=== PATIENT | female | born 1950 | race Caucasian/White ===

== ENCOUNTER 2021-01-17 08:00 | Outpatient (CLI) | payer MEDICARE ==
--- NOTE | 2021-01-17 15:15 | XRAY Report ---
PROCEDURE: Knee 3 View RT INDICATIONS: RIGHT KNEE PAIN TECHNIQUE: 3 views of the right knee(s) were acquired. COMPARISON: None. FINDINGS: Bones: No fractures or dislocations. No suspicious bony lesions. Mild tricompartmental osteoarthri tis. Soft tissues: Trace suprapatellar joint effusion. No suspicious soft tissue calcifications. IMPRESSION: Mild tricompartmental osteoarthritis. No fracture. No acute osseous lesion. If there persistent symptoms or continued clinical concern for pathology, then repeat plain film radiographs (7-10 days) or advanced imaging (CT, MR, bone scan) immanuel uld be considered for further evaluation. Reviewed by: Patty Harirson MD, PhD on 01/17/2021 3:13 PM PDT Approved by: Patty Harrison MD, PhD on 01/17/2021 3:13 PM PDT Station ID: [id number]
== END 2021-01-17 23:59 | disposition home or self-care (01) ==
LOC: DI.S 08:00
PROVIDERS: ATTEND Physician Assistant Medical
DX: M17.11 Unilateral primary osteoarthritis, right knee (principal)

== ENCOUNTER 2021-01-23 16:40 | Emergency (ER) | payer MEDICARE ==
--- OUTSIDE RECORDS SUMMARY | 2021-01-23 16:43 | EXTERNAL MEDICAL SUMMARY RPT | Continuity of Care Document ---
:1950 Demographics Phone Unavailable Preferred Language Unknown Marital Status Unknown Zoroastrianism Affiliation Unknown Race Unknown Ethnic Group Unknown Author Organization [facility] Address [address] [phone] Phone Care Team Providers Name Role Phone PA-C Unavailable Unavailable PA-C Unavailable Unavailable Problems date description facility 20210123 Unspecified right bundle-branch block [facility] 20210123 Tobacco use and exposure [facility] 20210123 Tobacco smoking status [facility] 20210123 Right bundle branch block [facility] 20210123 Never smoker [facility] 20210123 Exercise [facility] 20210117 Other bursitis of knee, right knee [facility] 20210117 Enthesopathy of knee, unspecified [facility] 20210117 Bursitis of knee [facility] 20210117 XR KNEE 3 VIEW [facility] 20210117 Tobacco use and exposure [facility] 20210117 Tobacco smoking status [facility] 20210117 Pain in right knee [facility] 20210117 Pain in joint involving lower leg [facility] 20210117 Never smoker [facility] 20210117 Knee pain [facility] 20210117 Exercise [facility] date description facility 20210123 EKG Office Complete [facility] [place] 20210117 XR KNEE 3 VIEW [facility] [place] 20210117 XR KNEE 3 VIEW [facility] [place] Vital Signs date measurement value source 20210117 weight_standard 125.6 lb 20210117 weight_metric 56.97 kg 20210117 temperature_standard 99 F 20210117 temperature_metric 37.22 C 20210117 respiration_rate 14 /min 20210117 height_standard 63.5 in 20210117 height_metric 161.29 cm 20210117 heart_rate 108 /min 20210117 BP_systolic 136 mm[Hg] 20210117 BP_diastolic 77 mm[Hg] 20210117 BMI 21.98 kg/m2 20210123 weight_standard 125 lb 20210123 weight_metric 56.7 kg 20210123 temperature_standard 97.2 F 20210123 temperature_metric 36.22 C 20210123 respiration_rate 14 /min 20210123 height_standard 63.5 in 20210123 height_metric 161.29 cm 20210123 heart_rate 86 /min 20210123 BP_systolic 157 mm[Hg] 20210123 BP_diastolic 77 mm[Hg] 20210123 BMI 21.87 kg/m2
--- NOTE | 2021-01-23 16:54 | ED Physician Documentation ---
History of Present Illness - Stated complaint Stated Complaint: RAPID HEARTRATE - Chief complaint Chief Complaint: Cardiac - History obtained from History obtained from: Patient - History of Present Illness Timing: How many weeks ago (1) Pain level max: 1 Pain level now: 0 - Additonal information Additional information: Patient is a 70-year-old female who states that she has been having palpitations intermittently for the past 1 to 2 weeks. She states she is on no medications. She states she had some slight chest pressure 2 weeks ago. None since then. She was seen at the walk-in clinic earlier today and noted to have a right bundle branch block so they sent her here for evaluation. Patient has not been tachycardic at the walk-in clinic. She states her only medical history is 3 C- sections in the past. No recent travel. No leg swelling. Currently asymptomatic No recent surgeries. . No recent antibiotics. Review of Systems Ten Systems: 10 systems reviewed and negative Constitutional: denies: Fever, Chills Nose: denies: Rhinorrhea / runny nose, Congestion Throat: denies: Sore throat Cardiac: reports: Palpitations. denies: Calf pain Respiratory: denies: Dyspnea, Cough, Hemoptysis, Wheezing GI: denies: Vomiting, Diarrhea Skin: denies: Rash Musculoskeletal: denies: Neck pain, Back pain Neurologic: denies: Headache, Head injury PD PAST MEDICAL HISTORY - Past Medical History Past Medical History: No - Present Medications Home Medications: Ambulatory Orders Medication Instructions Recorded Confirmed No Known Home Medications 01/23/21 01/23/21 - Allergies Allergies/Adverse Reactions: Allergies Allergy/AdvReac Type Severity Reaction Status Date / Time No Known Drug Allergies Allergy Verified 01/23/21 16:46 - Living Situation Living Arrangement: reports: At home - Social History Does the pt smoke?: No Does the pt drink ETOH?: No Does the pt have substance abuse?: No PD ED PE NORMAL - Vitals Vital signs reviewed: Yes - General General: Alert and oriented X 3, No acute distress, Well developed/nourished - HEENT HEENT: Moist mucous membranes - Neck Neck: Supple, no meningeal sign, No JVD, No bruit - Cardiac Cardiac: RRR, No murmur, Strong equal pulses - Respiratory Respiratory: No respiratory distress, Clear bilaterally - Abdomen Abdomen: Soft, Non tender, Non distended - Derm Derm: Warm and dry - Extremities Extremities: No edema, No calf tenderness / cord - Neuro Neuro: Alert and oriented X 3, mastic sprayer 2-12 intact, No motor deficit, No sensory deficit, Normal speech - Psych Psych: Normal mood, Normal affect Results - Vitals Vitals: Vital Signs - 24 hr 01/23/21 01/23/21 16:47 18:15 Temperature 36.8 C Heart Rate 99 75 Respiratory 18 17 Rate Blood Pressure 156/84 H 130/90 H O2 Saturation 99 99 Oxygen O2 Source Room air - EKG (time done) 1648 Rate: Rate (enter#) (95) Rhythm: NSR [place]: Normal Intervals: Normal SD, RBBB Ischemia: Normal ST segments Compare to prior EKG: Old EKG unavailable - Labs Labs: Laboratory Tests 01/23/21 01/23/21 01/23/21 17:00 17:00 17:00 WBC 8.9 RBC 4.59 Hgb 13.3 Hct 39.2 MCV 85.4 MCH 29.0 MCHC 33.9 RDW 12.9 Plt Count 267 MPV 8.5 Neut # (Auto) 5.5 Lymph # (Auto) 2.6 [place] # (Auto) 0.5 Eos # (Auto) 0.1 Baso # (Auto) 0.1 Absolute Nucleated RBC 0.00 Nucleated RBC % 0.0 D-Dimer Sodium 133 L Potassium 3.5 Chloride 98 L Carbon Dioxide 24 Anion Gap 11.0 BUN 10 Creatinine 0.6 Estimated GFR (MDRD) 99 Glucose 154 H Calcium 9.4 Total Bilirubin 0.8 AST 21 ALT 23 Alkaline Phosphatase 37 L Troponin I High Sens 3.4 Total Protein 7.0 Albumin 4.5 Globulin 2.5 Albumin/Globulin Ratio 1.8 Lipase 35 01/23/21 17:00 WBC RBC Hgb Hct MCV MCH MCHC RDW Plt Count MPV Neut # (Auto) Lymph # (Auto) [place] # (Auto) Eos # (Auto) Baso # (Auto) Absolute Nucleated RBC Nucleated RBC % D-Dimer < 200.0 L Sodium Potassium Chloride Carbon Dioxide Anion Gap BUN Creatinine Estimated GFR (MDRD) Glucose Calcium Total Bilirubin AST ALT Alkaline Phosphatase Troponin I High Sens Total Protein Albumin Globulin Albumin/Globulin Ratio Lipase - Rads (name of study) cxr Radiology: Prelim report reviewed, EMP read contemporaneously, See rad report (No acute cardiopulmonary pathology. ) PD MEDICAL DECISION MAKING - ED course Complexity details: reviewed results, re-evaluated patient, considered virginiakarthik cerda, d/w patient ED course: 70-year-old female with palpitations intermittently for the past 2 weeks. Does have an occasional PVC on monitoring here. No acute laboratory findings. No acute findings on EKG or chest x-ray. Negative D-dimer. Symptoms not consistent with a PE at this time. Low suspicion. Heart rate down to the 70s to 80s in the emergency department. Recommend that she follow-up with her doctor for further care, possible Holter monitoring. Patient counseled regarding signs and symptoms for which I believe and urgent re-evaluation would be necessary. Patient with good understanding of and agreement to plan and is comfortable going home at this time This document was made in part using voice recognition software. While efforts are made to proofread this document, sound alike and grammatical errors may occur. Departure - Departure Disposition: 01 Home, Self Care Clinical Impression: Palpitations Condition: Good Instructions: ED Palpitations Follow-Up: Renee Rubi MD [Primary Care Provider] - Comments: The cause of your symptoms is unclear today. You need to follow-up with your doctor for further evaluation. Your doctor may want to perform a test called a Holter monitor to monitor you for any arrhythmias. There is no evidence of heart attack, blood clot to the lungs or significant electrolyte issue today. Return if you worsen Discharge Date/Time: 01/23/21 18:15
[2021-01-23 17:06] LABS: BASOPHILS # (AUTO) 0.1 10^3/uL (0.0-0.1); BASOPHILS % (AUTO) 0.8 %; EOSINOPHILS # (AUTO) 0.1 10^3/uL (0.0-0.7); EOSINOPHILS % (AUTO) 1.5 %; HCT - HEMATOCRIT 39.2 % (37.0-47.0); HGB - HEMOGLOBIN 13.3 g/dL (12.0-16.0); LYMPHOCYTES # (AUTO) 2.6 10^3/uL (1.5-3.5); LYMPHOCYTES % (AUTO) 29.4 %; MEAN CORPUSCULAR HGB CONC 33.9 g/dL (32.0-36.0); MEAN CORPUSCULAR VOLUME 85.4 fL (81.0-99.0); MEAN PLATELET VOLUME 8.5 fL (7.9-10.8); MONOCYTES # (AUTO) 0.5 10^3/uL (0.0-1.0); MONOCYTES % (AUTO) 5.7 %; NEUTROPHILS # (AUTO) 5.5 10^3/uL (1.5-6.6); PLT - PLATELET COUNT 267 10^3/uL (130-450); RED BLOOD COUNT 4.59 10^6/uL (4.20-5.40); RED CELL DISTRIBUTION WIDTH 12.9 % (12.0-15.0); WHITE BLOOD COUNT 8.9 x10^3/uL (4.8-10.8)
--- OUTSIDE RECORDS SUMMARY | 2021-01-23 17:13 | EXTERNAL MEDICAL SUMMARY RPT | Continuity of Care Document ---
:1950 Demographics Phone Unavailable Preferred Language Unknown Marital Status Unknown Congregational Affiliation Unknown Race Unknown Ethnic Group Unknown Author Organization [facility] Address [address] [phone] Phone Care Team Providers Name Role Phone [...] facility 20210123 EKG Office Complete [facility] [place] 20210117 XR KNEE 3 VIEW [facility] [place] 20210117 XR KNEE 3 VIEW [facility] [place] Vital Signs date measurement value source 20210117 [...]
[2021-01-23 17:20] LABS: ALBUMIN 4.5 g/dL (3.2-5.5); ALBUMIN/GLOBULIN RATIO 1.8 (1.0-2.2); BILIRUBIN,TOTAL 0.8 mg/dL (0.2-1.0); CALCIUM 9.4 mg/dL (8.5-10.3); CREATININE 0.6 mg/dL (0.4-1.0); POTASSIUM 3.5 mmol/L (3.5-5.0)
--- NOTE | 2021-01-23 17:21 | XRAY Report ---
PROCEDURE: Chest 1 View X-Ray INDICATIONS: Chest Pain TECHNIQUE: One view of the chest was acquired. COMPARISON: None. FINDINGS: Surgical changes and devices: None. Lungs and pleura: No pleural effusions or pneumothorax. Lungs are clear. Mediastinum: Mediastinal contours appear normal. Heart size is normal. Bones and chest wall: No suspicious bony lesions. Overlying soft tissues appear unremarkable. IMPRESSION: No acute cardiopulmonary pathology. Reviewed by: Jose Montano MD on 01/23/2021 5:20 PM PDT Approved by: Jose Montano MD on 01/23/2021 5:20 PM PDT Station ID: [id number]
[2021-01-23 18:18] VITALS: BP 130/90
== END 2021-01-23 18:15 | disposition home or self-care (01) ==
LOC: ED 16:40
DX: R00.2 Palpitations (principal)
CPT/HCPCS: 36415; 80053; 83690; 84484; 85025; 85379; 93005; 99284

== ENCOUNTER 2021-02-08 16:11 | Outpatient (CLI) | payer MEDICARE ==
[2021-02-08 16:46] LABS: CREATININE 0.5 mg/dL (0.4-1.0)
[2021-02-08] MEDS ORDERED: IOVERSOL 320 100 ML VIAL IVP ONE ×2 (16:49→17:20)
--- NOTE | 2021-02-08 17:42 | CT Report ---
PROCEDURE: ANGIO CHEST W/WO INDICATIONS: Dyspnea,CP, Tachycardia CONTRAST: IV CONTRAST: Optiray 320 ml: 80 PO CONTRAST: *NO PO CONTRAST TECHNIQUE: After the administration of intravenous contrast, 2 mm thick sections acquired from the pulmonary api kennedi to the posterior costophrenic angles. 3-dimensional maximum intensity projection (MIP) coronal a nd sagittal reformats were then acquired through the thorax. For radiation dose reduction, the follow ing was used: automated exposure control, adjustment of mA and/or kV according to patient size. COMPARISON: Chest x-ray 01/23/2021. FINDINGS: Image quality: Excellent. Pulmonary arteries: Pulmonary arteries are normal in size, and demonstrate no intraluminal filling d efects to suggest central pulmonary embolism. Lungs and pleura: There is mild dependent atelectasis bilaterally. No acute consolidation. No pleural effusions or pneumothorax. Central and peripheral airways are patent. Mediastinum: Heart size is normal, without pericardial effusion. No mediastinal or hilar adenopathy. Thoracic aorta is normal in caliber and enhancement. Esophagus is normal in caliber, without hiata l hernia. Bones and chest wall: No suspicious bony lesions. Ribs and thoracic spine appear intact throughout. No axillary or supraclavicular adenopathy. There is a small hypoattenuating left thyroid nodule me asuring up to 1.2 cm. Abdomen: Visualized upper abdominal solid organs appear normal in the early arterial phase of enhanc ement. IMPRESSION: 1. No evidence of pulmonary embolism. 2. No acute airspace consolidation the lungs. 3. Small left thyroid nodule measuring up to 1.2 cm. CLINICAL RECOMMENDATION STATEMENTS: In patients <35 years with an incidental thyroid nodule detected on CT, MRI, or extrathyroidal ultras ound, the Committee recommends further evaluation with dedicated thyroid ultrasound if the nodule is ?1 cm and has no suspicious imaging features, and if the patient has normal life expectancy. In patients ?35 years with an ITN detected on CT, MRI, or extrathyroidal ultrasound, the Committee re commends further evaluation with dedicated thyroid ultrasound if the nodule is ?1.5 cm and has no dawson picious imaging features, and if the patient has normal life expectancy. (ACR, 2014) Reviewed by: Nick Caballero MD on 02/08/2021 5:41 PM PDT Approved by: Nick Caballero MD on 02/08/2021 5:41 PM PDT Station ID: [id number]
== END 2021-02-08 16:12 | disposition home or self-care (01) ==
LOC: LAB 16:11
PROVIDERS: ATTEND Internal Medicine
DX: Z79.899 Other long term (current) drug therapy (principal); R00.2 Palpitations; R00.0 Tachycardia, unspecified; E04.1 Nontoxic single thyroid nodule
CPT/HCPCS: 36415; 71275; 82565; Q9967; 84443

== ENCOUNTER 2021-12-18 08:00 | Outpatient (CLI) | payer MEDICARE ==
[2021-12-18 16:09] LABS: BASOPHILS # (AUTO) 0.1 10^3/uL (0.0-0.1); BASOPHILS % (AUTO) 0.9 %; EOSINOPHILS # (AUTO) 0.4 10^3/uL (0.0-0.7); EOSINOPHILS % (AUTO) 4.6 %; HCT - HEMATOCRIT 40.7 % (37.0-47.0); HGB - HEMOGLOBIN 14.1 g/dL (12.0-16.0); LYMPHOCYTES # (AUTO) 3.3 10^3/uL (1.5-3.5); LYMPHOCYTES % (AUTO) 34.2 %; MEAN CORPUSCULAR HEMOGLOBIN 30.7 pg (27.0-31.0); MEAN CORPUSCULAR HGB CONC 34.6 g/dL (32.0-36.0); MEAN CORPUSCULAR VOLUME 88.7 fL (81.0-99.0); MONOCYTES # (AUTO) 0.7 10^3/uL (0.0-1.0); MONOCYTES % (AUTO) 6.8 %; NEUTROPHILS % (AUTO) 52.9 %; PLT - PLATELET COUNT 251 10^3/uL (130-450); RED BLOOD COUNT 4.59 10^6/uL (4.20-5.40); RED CELL DISTRIBUTION WIDTH 12.7 % (12.0-15.0); WHITE BLOOD COUNT 9.6 x10^3/uL (4.8-10.8)
[2021-12-18 16:30] LABS: ALBUMIN 4.4 g/dL (3.2-5.5); ALBUMIN/GLOBULIN RATIO 1.7 (1.0-2.2); ALKALINE PHOSPHATASE 35 IU/L (42-121); ALT ALANINE AMINOTRANSFERASE 21 IU/L (10-60); AST ASPARTATE AMINOTRANSFERASE 20 IU/L (10-42); BILIRUBIN,TOTAL 0.7 mg/dL (0.2-1.0); BUN - BLOOD UREA NITROGEN 10 mg/dL (6-20); CARBON DIOXIDE - CO2 25 mmol/L (21-32); CHLORIDE 100 mmol/L (101-111); CHOL/HDL RATIO 3.9 (<4.4); CHOLESTEROL 220 mg/dL; CREATININE 0.5 mg/dL (0.4-1.0); GFR - MDRD 122 (>89); GLUCOSE 88 mg/dL (70-100); HDL CHOLESTEROL 57 mg/dL; LDL CHOLESTEROL,CALCULATED 136 mg/dL; LDL/HDL RATIO 2.4 (<4.4); MAGNESIUM 2.1 mg/dL (1.7-2.8); POTASSIUM 3.6 mmol/L (3.5-5.0); SODIUM 135 mmol/L (135-145); TRIGLYCERIDES 135 mg/dL; VLDL CHOLESTEROL 27 mg/dL
[2021-12-19 12:25] LABS: HEPATITIS C ANTIBODY NON-REACTIVE (NON-REACTIVE)
== END 2021-12-18 23:59 ==
LOC: LAB.R 08:00
PROVIDERS: ATTEND Internal Medicine
DX: Z00.00 Encounter for general adult medical examination without abnormal findings (principal); I49.1 Atrial premature depolarization; L30.9 Dermatitis, unspecified; Z86.010 Personal history of colon polyps; I10 Essential (primary) hypertension; I49.3 Ventricular premature depolarization; J30.2 Other seasonal allergic rhinitis; Z11.59 Encounter for screening for other viral diseases; E04.1 Nontoxic single thyroid nodule
CPT/HCPCS: 80053; 80061; 83721; 83735; 84443; 85025; 86803

== ENCOUNTER 2022-02-11 11:00 | Outpatient (CLI) | payer MEDICARE ==
--- NOTE | 2022-02-11 15:17 | Ultrasound Report ---
PROCEDURE: Head or Neck Soft Tissue INDICATIONS: THYROID NODULE TECHNIQUE: Real-time scanning was performed of the thyroid gland, with image documentation. COMPARISON: None FINDINGS: Right: Thyroid lobe measures 3.6 x 1.1 x 1.7 cm, and is homogeneous in echotexture. Left: Thyroid lobe measures 3.5 x 1.2 x 1.3 cm, and is homogenous in echotexture. Isthmus: 2.0 mm thick. Nodule number: One Location: Right lateral Size: 0.5 x 0.3 x 0.3 cm. Composition: Predominantly solid Echogenicity: Hypoechoic Shape: wider than tall. Margins: Smooth Echogenic foci: None Total points: 30 ACR TI-RADS category: Mildly suspicious Nodule number: Two Location: Right superior Size: 0.6 x 0.3 x 0.3 cm. Composition: Predominantly solid Echogenicity: Hypoechoic Shape: wider than tall. Margins: Smooth Echogenic foci: None Total points: 3 ACR TI-RADS category: Moderately suspicious Nodule number: Three Location: Left inferior Size: 1.6 x 1.1 x 1.2 cm. Composition: Predominantly solid Echogenicity: Hypoechoic Shape: wider than tall. Margins: Lobulated Echogenic foci: None Total points: 5 ACR TI-RADS category: Moderately suspicious IMPRESSION: Thyroid nodules. Based on criteria outlined below ultrasound guided fine needle aspirati on of nodule #3 in the left lobe is recommended. ACR TI-RADS definitions and recommendations: TI-RADS 1 (benign): 0 points. FNA not needed. TI-RADS 2 (not suspicious): 2 points. FNA not needed. TI-RADS 3 (mildly suspicious): 3 points. "FNA if 2.5 cm or larger, follow up if 1.5 cm or larger (at 1, 3, and 5 years). TI-RADS 4 (moderately suspicious): 4-6 points. "FNA if 1.5 cm or larger, follow up if 1 cm or larger (at 1, 2, 3, and 5 years). TI-RADS 5 (highly suspicious): 7 points or more. "FNA if 1 cm or larger, follow up if 0.5 cm or larger (every year for 5 years). Reviewed by: Patty Harrison MD, PhD on 02/11/2022 3:15 PM PDT Approved by: Patty Harrison MD, PhD on 02/11/2022 3:15 PM PDT Station ID: [id number]
== END 2022-02-11 11:01 | disposition home or self-care (01) ==
LOC: DI 11:00
PROVIDERS: ATTEND Internal Medicine
DX: E04.2 Nontoxic multinodular goiter (principal)

== ENCOUNTER 2022-10-01 12:23 | Outpatient (CLI) | payer MEDICARE ==
--- NOTE | 2022-10-01 16:41 | Ultrasound Report ---
PROCEDURE: Head or Neck Soft Tissue INDICATIONS: THYROID NODULE TECHNIQUE: Real time scanning was performed of the neck region of interest, with image documentation . COMPARISON: 02/11/2022 FINDINGS: Right lobe measures 4.2 x 1.1 x 1.8 cm. Left lobe measures 3.6 x 1.6 x 1.1 cm. Isthmus pasha ures 0.2 cm. Right lateral nodule 1 measures up to 5 mm and does not require dedicated follow-up. Right superior nodule 2 measures up to 6 mm and does not require dedicated follow-up. Left inferior nodule 3 measures 16 x 14 x 11 mm, stable from prior. It is solid, hypoechoic, with pos sible punctate echogenic foci. TR 5. No pathologic adenopathy by size criteria. IMPRESSION: Stable left inferior thyroid nodule, TR 5, for which FNA is recommended per guidelines. Reviewed by: Andrew Barnett MD on 10/01/2022 4:39 PM PST Approved by: Andrew Barnett MD on 10/01/2022 4:39 PM PST Station ID: [id number]
== END 2022-10-01 12:24 | disposition home or self-care (01) ==
LOC: DI 12:23
PROVIDERS: ATTEND Internal Medicine
DX: E04.1 Nontoxic single thyroid nodule (principal)